=== PATIENT | female | born 1950 | race Two or more races ===

== ENCOUNTER 2022-06-03 14:01 | Emergency (ER) | payer OTHER ==
[~2022-06-03] VITALS: Ht 180.3 cm; Wt 81.2 kg
[2022-06-03] MEDS ORDERED: PROTONIX40 MG (14:03)
[2022-06-03] MEDS ORDERED: IRBESARTAN75 MG (14:05)
[2022-06-03] MEDS ORDERED: SYNTHROID50 MCG (14:05)
== END 2022-06-03 19:32 | disposition home or self-care (01) ==
LOC: ER 14:01
DX: K52.9 Noninfective gastroenteritis and colitis, unspecified (principal)

== ENCOUNTER 2023-12-27 07:45 | Emergency (ER) | payer OTHER ==
[~2023-12-27] VITALS: Ht 180.3 cm; Wt 83.9 kg
[~2023-12-27 07:45] MED LIST: IRBESARTAN75 MG; PROTONIX40 MG; SYNTHROID50 MCG
[2023-12-27] MEDS ORDERED: AVAPRO75 MG PO (07:57)
[2023-12-27] MEDS ORDERED: KETOROLAC TROMETHAMINE 60 MG VIAL IM ONE ×2 (09:26→09:30)
== END 2023-12-27 12:42 | disposition home or self-care (01) ==
LOC: ER 07:46
DX: S52.92XA Unspecified fracture of left forearm, initial encounter for closed fracture (principal); W19.XXXA Unspecified fall, initial encounter; Y93.89 Activity, other specified; Y92.89 Other specified places as the place of occurrence of the external cause; Y99.8 Other external cause status; I10 Essential (primary) hypertension; E03.8 Other specified hypothyroidism
CPT/HCPCS: 70260; 73030; 73060; 73080; 73090; 73110; 96372; 99283; J1885

== ENCOUNTER 2024-07-08 06:47 | Emergency (ER) | payer OTHER ==
[~2024-07-08] VITALS: Ht 180.3 cm; Wt 86.2 kg
[~2024-07-08 06:47] MED LIST changes: +AVAPRO75 MG PO
[2024-07-08 07:21] VITALS: BP 130/75; O2SAT 99
[2024-07-08] MEDS ORDERED: FAMOTIDINE/PF 20 MG/2 ML VIAL IV PUSH STA (10:16)
[2024-07-08] MEDS ORDERED: RINGERS SOLUTION,LACTATED 500 ML IV STA (10:17)
[2024-07-08] MEDS ORDERED: LACTOBACILLUS ACIDOPHILUS 1 CAP CAP PO STA (10:18)
[2024-07-08] MEDS ORDERED: LACTOBACILLUS ACIDOPHILUS 1 CAP CAP PO ONE (10:23)
[2024-07-08] MEDS ORDERED: FAMOTIDINE/PF 20 MG/2 ML VIAL ONE (10:23)
[2024-07-08 11:29] LABS: HEMATOCRIT 38.9 % (36.0-45.00); HEMOGLOBIN 13.6 g/dL (12.0-15.00); MEAN CELL VOLUME 84.9 fL (80.00-100.00); MEAN CORPUSCULAR HEMOGLOBIN 29.7 pg (27.00-32.0); PLATELET COUNT 212 K/uL (150-450); RED BLOOD COUNT 4.58 M/uL (4.00-6.00); RED CELL DISTRIBUTION WIDTH 13.3 % (11.5-14.5)
[2024-07-08 11:56] LABS: AMYLASE 95 U/L (25-115)
[2024-07-08 11:58] LABS: LIPASE 158 U/L (13-75)
[2024-07-08 12:03] LABS: ALBUMIN 4.2 gm/dL (3.4-5.0); BILIRUBIN TOTAL 0.54 mg/dL (0.3-1.2); CALCIUM 9.4 mg/dL (8.5-10.1); CREATININE SERUM 0.73 mg/dL (0.55-1.02); GFR 78.37; GLOBULINA 3.9 G/DL (2.4-3.5); MAGNESIUM 2.2 mg/dL (1.8-2.4); POTASSIUM 3.72 mEq/L (3.5-5.1); TOTAL PROTEIN 8.1 gm/dL (6.4-8.2)
== END 2024-07-08 12:46 | disposition home or self-care (01) ==
LOC: ER 06:49
PROVIDERS: General Practice
DX: K52.89 Other specified noninfective gastroenteritis and colitis (principal)
CPT/HCPCS: 36415; 96365; 99282; J3490

== ENCOUNTER 2024-10-02 07:28 | Outpatient (CLI) | payer OTHER | END 2024-10-02 07:29 | disposition home or self-care (01) | LOC: NUCLEAR 07:28 | PROVIDERS: ATTEND Internal Medicine | DX: I20.9 Angina pectoris, unspecified (principal) | CPT/HCPCS: 78452; 93017; A9500 ==